=== PATIENT | male | born 1985 | race Two or more races ===

== ENCOUNTER 2023-05-25 17:40 | Emergency (ER) | payer SELFPAY ==
[2023-05-25 17:58] VITALS: BP 118/82; PULSE 80; RESP 18; TEMP 98.8; BMI 31.9
== END 2023-05-25 20:18 | disposition home or self-care (01) ==
LOC: JER 17:40 → JERFT 17:40
DX: M25.562 Pain in left knee (principal)
CPT/HCPCS: 73562-TC-LT-FY; 99283-25